=== PATIENT | male | born 1995 | race Caucasian/White ===

== ENCOUNTER 2020-11-08 21:56 | Observation (INO) ==
[2020-11-09 03:49] LABS: Influenza A PCR Negative (Negative); Influenza B PCR Negative (Negative); Resp. Syncytial Virus PCR Negative (Negative)
[2020-11-09 03:57] LABS: SARS-CoV-2 by PCR (In House) Negative (Negative)
[2020-11-09] MEDS ORDERED: 0.9 % Sodium Chloride 1,000 ML IVC SCH (05:45)
[2020-11-09] MEDS ORDERED: *HR* FentaNYL (PF) 100 MCG/2 ML VIAL IVP ONE (07:51)
[2020-11-09] MEDS ORDERED: *HR* Midazolam HCl 5 MG/5 ML VIAL IVP ONE ×2 (07:51)
[2020-11-09] MEDS ORDERED: *HR* FentaNYL (PF) 100 MCG/2 ML VIAL ONE (07:51)
[2020-11-09 08:17] VITALS: BP 131/67
== END 2020-11-09 10:37 | disposition home or self-care (01) ==
LOC: 3BNU 21:56 → EMEROOARM 21:56 → 3BNU 11-09 05:30
PROVIDERS: ADMIT Surgery; ATTEND Surgery
PROC: ENDOEFB (2020-11-09 08:00)